=== PATIENT | male | born 1975 | race Caucasian/White ===

== ENCOUNTER 2018-08-21 09:17 | Emergency (ER) | payer OTHER ==
[~2018-08-21] VITALS: Ht 180.3 cm; Wt 102.4 kg
[2018-08-21] MEDS ORDERED: OXYMETAZOLINE NASAL SPRAY 0.05%, 15ML ONE (09:58)
[2018-08-21] MEDS ORDERED: CLON0.2T PO (09:58)
[2018-08-21] MEDS ORDERED: CARV25TA12 PO (09:58)
[2018-08-21] MEDS ORDERED: CARDIZEM PO (09:58)
[2018-08-21] MEDS ORDERED: LISI40TA PO (09:58)
[2018-08-21] MEDS ORDERED: AMLO10TA6 PO (09:58)
[2018-08-21] MEDS ORDERED: OXYMETAZOLINE NASAL SPRAY 0.05%, 15ML NAS ONE (10:00)
--- NOTE | 2018-08-21 10:00 | NUR ---
REPORT FROM DYLAN JAMES. ASSUMED CARE OF PATIENT AT THIS TIME.
--- NOTE | 2018-08-21 10:14 | NUR ---
AFRIN ADMINISTERED, EPISTAXIS NOT SUBSIDING, PA AWARE. PA TO SEE PATIENT.
--- NOTE | 2018-08-21 11:14 | NUR ---
ENT CONSULTED, AWAITING CALL.
[2018-08-21 11:30] VITALS: BP 126/86
--- NOTE | 2018-08-21 11:46 | NUR ---
Patient/Caregiver given discharge instructions and they have confirmed that they understand the instructions. Patient ambulatory with steady gait.
== END 2018-08-21 11:47 | disposition home or self-care (01) ==
LOC: ED 10:35
DX: R04.0 Epistaxis (principal); I10 Essential (primary) hypertension
CPT/HCPCS: 99282; 99283